=== PATIENT | female | born 1955 | race Caucasian/White ===

== ENCOUNTER 2018-01-17 06:31 | Day surgery (SDC) | payer OTHER ==
[2018-01-17] MEDS ORDERED: IOHEXOL 300MG/ML 30 ML BTL (06:45)
[2018-01-17] MEDS: CEFAZOLIN 2 GM/50 ML (PMX) 50 ML IVPB (07:00)
[2018-01-17] MEDS: LACTATED RINGER'S 1,000 ML IV (08:00)
[2018-01-17] MEDS ORDERED: CIPROFLOXACIN 400MG/D5W 200 ML (09:00)
[2018-01-17] MEDS ORDERED: FENTAnyl 50 MCG/ML VIAL (09:19)
[2018-01-17] MEDS ORDERED: PROPOFOL 20 ML (09:29)
[2018-01-17] MEDS ORDERED: LIDOCAINE 100 MG SYRINGE (09:29)
[2018-01-17] MEDS ORDERED: ONDANSETRON 4 MG INJ (09:30)
[2018-01-17] MEDS ORDERED: DEXAMETHASONE 4 MG/ML 1 ML INJ (09:30)
[2018-01-17] MEDS ORDERED: EPHEDrine SULFATE 50 MG/5 ML SYG (09:34)
[2018-01-17] MEDS: IOHEXOL 300MG/ML 30 ML BTL INJ ×2 (09:35)
[2018-01-17] MEDS ORDERED: IPRATROPIUM (NEB) 0.5 MG/2.5 ML AMP HHN (11:30)
[2018-01-17] MEDS ORDERED: DIPHENHYDRAMINE 50 MG INJ IV (11:30)
[2018-01-17] MEDS ORDERED: ALBUTEROL 0.083% (NEB) 2.5 MG/3 ML AMP HHN (11:30)
[2018-01-17] MEDS ORDERED: OXYCODONE/ACETAMINOPHEN (5/325) TAB PO ×2 (11:30)
[2018-01-17] MEDS ORDERED: EPHEDrine SULFATE 50 MG/5 ML SYG IV (11:30)
[2018-01-17] MEDS ORDERED: ONDANSETRON 4 MG INJ IV (11:30)
[2018-01-17] MEDS ORDERED: FENTAnyl 50 MCG/ML VIAL IV ×2 (11:30)
[2018-01-17] MEDS ORDERED: HYDROmorphONE 1 MG/5 ML IV SYRINGE IV (11:30)
[2018-01-17] MEDS ORDERED: LABETALOL HCL 20MG INJ IV (11:30)
[2018-01-17] MEDS ORDERED: MEPERIDINE 25 MG INJ IV (11:30)
[2018-01-17] MEDS ORDERED: MIDAZOLAM 1 MG/ML 2 ML INJ IV (11:30)
[2018-01-17] MEDS ORDERED: TRIMETHOBENZAMIDE 100 MG/ML VIAL IM (11:30)
[2018-01-17] MEDS: hydrALAzine 20 MG INJ IV (11:31)
[2018-01-17] MEDS: HYDROmorphONE 1 MG/5 ML IV SYRINGE IV ×2 (11:31→11:46)
[2018-01-17] MEDS: FENTAnyl 50 MCG/ML VIAL IV ×2 (11:56→12:10)
== END 2018-01-17 13:21 | disposition home or self-care (01) ==
LOC: SDS 06:31
DX: N20.0 Calculus of kidney (principal); I10 Essential (primary) hypertension
CPT/HCPCS: 52356